=== PATIENT | female | born 1995 | race Caucasian/White ===

== ENCOUNTER 2024-02-23 20:55 | Emergency (ER) | payer OTHER ==
[~2024-02-23] VITALS: Ht 162.6 cm; Wt 54.5 kg
[2024-02-23 20:57] VITALS: TEMP 97.7; O2SAT 99
[2024-02-23 22:40] LABS: BASOPHILS % 0.9 % (0.0-2.0); EOSINOPHILS % 2.7 % (0.0-5.0); HEMATOCRIT. 35.8 % (36.0-48.0); HEMOGLOBIN. 11.7 g/dL (12.0-16.0); LYMPHOCYTES % 39.8 % (20.0-50.0); MEAN CORPUSCULAR HEMOGLOBIN 29.3 pg (28.0-32.0); MEAN CORPUSCULAR HGB CONC 32.8 g/dL (31.0-37.0); MEAN CORPUSCULAR VOLUME 89.3 fL (81.0-99.0); MEAN PLATELET VOLUME 10.7 fl (7.4-10.4); MONOCYTES % 6.1 % (2.0-8.0); NEUTROPHILS % 50.5 % (40.0-76.0); PLATELET 218 x1000/uL (130-400); RED BLOOD CELL COUNT 4.01 mill/uL (4.2-5.4); RED CELL DISTRIBUTION WIDTH 16.5 % (11.6-14.6); WHITE BLOOD COUNT 6.1 x1000/uL (4.5-11.0)
[2024-02-23 22:45] LABS: CHLORIDE 108 mEq/L (98-107); POTASSIUM 3.5 mEq/L (3.5-5.1); SODIUM 141 mEq/L (136-145)
[2024-02-23 22:46] LABS: CARBON DIOXIDE 26 mEq/L (21-32)
[2024-02-23 22:51] LABS: CREATININE 0.6 mg/dL (0.6-1.0); GLUCOSE 114 mg/dL (70-105); UREA NITROGEN BLOOD 9 mg/dL (9-23)
[2024-02-23 23:16] LABS: CLARITY URINE CLEAR (CLEAR); COLOR URINE YELLOW (YELLOW); GLUCOSE URINE NEGATIVE (NEGATIVE); KETONES URINE NEGATIVE (NEGATIVE); NITRITE URINE NEGATIVE (NEGATIVE); OCCULT BLOOD URINE TRACE (NEGATIVE); PH URINE 6.5 (4.5-8.0); PROTEIN URINE NEGATIVE (NEGATIVE); SPECIFIC GRAVITY URINE 1.019 (1.005-1.030); UROBILINOGEN URINE 0.2 E.U./dL (0.2-1.0)
[2024-02-23 23:17] LABS: LEUKOCYTE ESTERASE URINE 1+ (NEGATIVE)
[2024-02-23 23:18] LABS: PARTIAL THROMBOPLASTIN TIME 26.4 sec (23.4-31.0); PROTHROMBIN TIME 10.7 sec (9.6-11.0)
[2024-02-23] MEDS: HYDROCODONE/ACETAMINOPHEN 5/325MG TABLET PO ONE (23:20)
[2024-02-23 23:21] LABS: HCG SCREEN NEGATIVE
[2024-02-23 23:26] LABS: BACTERIA URINE NONE SEEN; RBC URINE 0-2 /hpf (0-2); SQUAMOUS EPITHELIAL CELL URINE FEW /lpf (RARE/1+)
[2024-02-24] MEDS ORDERED: NAPR-1176 MT (02:36)
[2024-02-24] MEDS ORDERED: LIDO700A15 TP (02:36)
[2024-02-24] MEDS ORDERED: METH-653 MT (02:36)
[2024-02-24 02:51] VITALS: BP 100/60; PULSE 72; RESP 12; O2SAT 100
== END 2024-02-24 02:57 | disposition home or self-care (01) ==
LOC: ER 20:55
DX: S16.1XXA Strain of muscle, fascia and tendon at neck level, initial encounter (principal); F07.81 Postconcussional syndrome; X58.XXXA Exposure to other specified factors, initial encounter; Y93.89 Activity, other specified; Y92.89 Other specified places as the place of occurrence of the external cause; Y99.8 Other external cause status; Z79.1 Long term (current) use of non-steroidal anti-inflammatories (NSAID); Z86.011 Personal history of benign neoplasm of the brain; Z85.9 Personal history of malignant neoplasm, unspecified; R56.9 Unspecified convulsions; Z98.890 Other specified postprocedural states
CPT/HCPCS: 36415; 72040; 80048; 81003; 84703; 85025; 86850; 86900; 99285